=== PATIENT | female | born 1970 | race Caucasian/White ===

== ENCOUNTER 2017-02-05 06:46 | Day surgery (SDC) | payer BC, OTHER ==
[2017-02-03 11:07] VITALS: BMI 27.4
[2017-02-05] MEDS ORDERED: MIDAZOLAM HCL 2 MG/2 ML SINGLE DOSE VIAL ONE (07:33)
[2017-02-05] MEDS ORDERED: PHENYLEPHRINE HCL 10 MG/1 ML SINGLE DOSE VIAL ONE (07:33)
[2017-02-05] MEDS ORDERED: PROPOFOL 20 ML ONE ×7 (07:33→09:00)
[2017-02-05] MEDS ORDERED: SUCCINYLCHOLINE CHLORIDE 200 MG/10 ML VIAL ONE (07:33)
[2017-02-05] MEDS ORDERED: ePHEDrine SULFATE 50 MG/1 ML AMPULE ONE (07:33)
[2017-02-05] MEDS ORDERED: ROCURONIUM BROMIDE 50 MG/5 ML VIAL ONE (07:36)
[2017-02-05] MEDS ORDERED: GENTAMICIN SO4 80 MG/2 ML VIAL ONE (08:23)
[2017-02-05] MEDS ORDERED: ceFAZolin SODIUM 1 GM VIAL IVPB ONE (08:34)
[2017-02-05] MEDS ORDERED: GENTAMICIN SO4 80 MG/2 ML VIAL IVPB ONE (08:37)
[2017-02-05] MEDS ORDERED: DEXAMETHASONE SOD PHOSPHATE 4 MG/1 ML VIAL ONE (08:54)
[2017-02-05] MEDS ORDERED: ONDANSETRON 4 MG/2 ML VIAL ONE (08:54)
[2017-02-05] MEDS ORDERED: BACITRACIN 30 GM TUBE TOPICAL OINTMENT ONE (09:13)
[2017-02-05] MEDS ORDERED: BACITRACIN 30 GM TUBE TOPICAL OINTMENT TP ONE (09:18)
[2017-02-05] MEDS ORDERED: oxyCODONE HCL 5 MG TABLET PO PRN (09:24)
--- NOTE | 2017-02-05 09:24 | OP ---
Operative Note - Note: Operative Date: 02/05/17 Pre-Operative Diagnosis: stress urinary incontinence Operation: cysto/suburethral sling placement (altiss) Findings: ADRYAN Post-Operative Diagnosis: Same as Pre-op Surgeon: Jorden Arriaga Anesthesia: Spinal Estimated Blood Loss (mls): 25 Operative Report Dictated: Yes
[2017-02-05] MEDS ORDERED: ELECTROLYTE-148 SOLN 1,000 ML IV SCH (09:30)
[2017-02-05] MEDS ORDERED: ONDANSETRON 4 MG/2 ML VIAL IVPUSH PRN (09:38)
[2017-02-05] MEDS ORDERED: LACTATED RINGERS SOLUTION 1,000 ML IV SCH (09:45)
--- NOTE | 2017-02-05 10:50 | OP ---
DATE OF OPERATION: 02/05/2017 PREOPERATIVE DIAGNOSIS: Stress urinary incontinence. POSTOPERATIVE DIAGNOSIS: Stress urinary incontinence. PROCEDURE: Cystoscopy, sub urethral sling placement, Altis by Coloplast. SURGEON: Estevan Dean M.D. INDICATIONS: Patient is a 47-year-old female with stress urinary incontinence who, after reviewing the treatment options, elected to undergo sling placement. Understood the risks of bleeding, infection, persistent stress urinary incontinence urge incontinence, potential risk for sling erosion, potential need for additional procedures. FDA warning regarding mesh was also discussed. After informed consent was obtained, patient elected to undergo the procedure. PROCEDURE: Patient was taken to the OR and placed supine on the operating room table. Spinal anesthetic was given. She was prepped and draped position. Vasopressin was injected into the vagina and a Stanton catheter was placed, as well as a weighted vaginal speculum. At this point, a midline incision was created in the mid urethra. The vaginal epithelium was from the underlying sub urethral tissue and the dissection was carried out laterally until the obturator membrane could be palpated. This was done bilaterally. Any bleeding that was encountered was cauterized. Using finger palpation, the obturator membrane could be felt bilaterally. At this point, attention first turned to the patient's right side. The right-sided trocar was placed onto the anchor of the sling. The trocar was placed at the appropriate angle on the patient and advanced beyond bone right to where the obtruator membrane could be palpated. The membrane was pierced with the trocar and a slight twist allowed the anchor to be disengaged from the trocar and the trocar removed. A slight tug on the sling revealed good anchor situation beyond the membrane. In a similar fashion on the patient's left side, the trocar was attached to the anchor on the sling. Trocar was placed at the appropriate angle and then advanced beyond bone to where the obturator membrane could be felt and then the obturator membrane was pierced with the trocar with a slight turn and thereby disengaging the anchor onto the obturator membrane and then the trocar removed. At this point, the sling was snug up against the urethra, but there was no tension. A right angle clamp could be easily placed between the sling and the mid urethra. The bladder was filled to 250 mL. The patient was asked to cough. There was no incontinence noted. The excess suture on the sling was then excised and attention was turned to wound closure. The wound was closed with a running 2-0 Vicryl suture in a locking fashion. The Stanton was removed and re-cystoscopy was performed to confirm no evidence of any bladder or urethral injury and none was noted. Bilateral urethral orifices were seen in their normal anatomic position and with good efflux. Cystoscope removed. Stanton was then replaced and the vaginal packing was placed as well. The patient was then awoken from anesthesia and transferred to the recovery room in stable condition. COMPLICATIONS: There were no complications. ESTIMATED BLOOD LOSS: Approximately 25 mL. ESTEVAN DEAN M.D. [id number]
[2017-02-05 11:12] VITALS: TEMP 98
[2017-02-05] MEDS ORDERED: ACETAMINOPHEN 325 MG TABLET (FP) ONE (12:52)
[2017-02-05] MEDS ORDERED: ACETAMINOPHEN 325 MG TABLET (FP) PO ONE (12:57)
[2017-02-05 15:42] VITALS: BP 123/60; PULSE 60
== END 2017-02-05 15:42 | disposition home or self-care (01) ==
LOC: JASU-SURG 06:46
PROVIDERS: ATTEND Urology
PROC: 0TSD0ZZ Reposition Urethra, Open Approach (ICD-10-PCS; principal; 2017-02-05 08:00)
DX: N39.3 Stress incontinence (female) (male) (principal)
CPT/HCPCS: 84703; 94760

== ENCOUNTER 2019-06-30 10:17 | Day surgery (SDC) | payer BC ==
[2019-06-28 14:19] VITALS: BMI 27.8
[2019-06-30] MEDS ORDERED: ONDANSETRON 4 MG/2 ML VIAL IVPUSH PRN (12:09)
[2019-06-30] MEDS ORDERED: MIDAZOLAM HCL 2 MG/2 ML SINGLE DOSE VIAL ONE (12:12)
[2019-06-30] MEDS ORDERED: PROPOFOL 20 ML ONE ×2 (12:12→12:18)
[2019-06-30] MEDS ORDERED: LACTATED RINGERS SOLUTION 1,000 ML IV SCH (12:15)
[2019-06-30] MEDS ORDERED: ceFAZolin SODIUM 1 GM VIAL IVPB ONE (12:20)
[2019-06-30] MEDS ORDERED: GENTAMICIN SO4 80 MG/2 ML VIAL IVPB ONE (12:21)
[2019-06-30] MEDS ORDERED: BACITRACIN 15 GM TUBE TOPICAL OINTMENT ONE (12:46)
[2019-06-30] MEDS ORDERED: GENTAMICIN SO4 80 MG/2 ML VIAL ONE (12:46)
[2019-06-30] MEDS ORDERED: BACITRACIN 15 GM TUBE TOPICAL OINTMENT TP ONE (12:48)
[2019-06-30] MEDS ORDERED: oxyCODONE HCL 5 MG TABLET PO PRN (13:04)
--- NOTE | 2019-06-30 13:05 | OP ---
Operative Note - Note: Operative Date: 06/30/19 Pre-Operative Diagnosis: eroded suburethral sling Operation: sling removal Post-Operative Diagnosis: Same as Pre-op Anesthesia: General Estimated Blood Loss (mls): 5 Operative Report Dictated: Yes
[2019-06-30] MEDS ORDERED: ELECTROLYTE-148 SOLN 1,000 ML IV SCH (13:15)
--- NOTE | 2019-06-30 14:46 | OP ---
DATE OF OPERATION: 06/30/2019 PREOPERATIVE DIAGNOSIS: Eroded suburethral sling. POSTOPERATIVE DIAGNOSIS: Eroded suburethral sling. PROCEDURE: Suburethral sling removal. SURGEON: Estevan Dean MD INDICATION: Patient is a 49-year-old female who is status post sling placement several years ago for stress urinary incontinence, now has noticed increased urinary frequency and urge incontinence, and on exam, noted to have sling erosion. She was taken to the OR for removal of the eroded sling. Risks, benefits, and alternatives discussed. After informed consent was obtained, patient was taken to the OR and placed supine on the operating table. After cardiac monitoring was established, general anesthesia was then administered. She was prepped and draped in the dorsal lithotomy position. A mid-urethral incision was created in the vaginal epithelium right where the eroded sling was identified. The eroded sling was then dissected laterally until its attachments to the obturator fossa were identified. After dissection, each arm of the sling was then excised from its attachments to the obturator fascia, and then, the sling was removed in its entirety and sent to pathology for analysis. All bleeding sites were cauterized. The vaginal epithelium was then reapproximated with 2-0 running Vicryl stitch, and vaginal packing was then placed. Of note, a Stanton catheter was placed prior to the incision and was kept after the procedure. Patient was then awoken from anesthesia and transferred to recovery room in stable condition. There were no complications. Estimated blood loss was minimal. ESTEVAN DEAN M.D. [id number]
[2019-06-30 17:22] VITALS: TEMP 98.2
[2019-06-30 17:41] VITALS: BP 115/75; PULSE 94
--- NOTE | 2019-07-04 09:09 | PATH ---
Surgical Pathology Report Patient Name: MARK GOLD [facility]. Rec. #: [id number] /Age/Gender: 1970 (Age: 49) / F Account: [id number] Location: U SURGICAL Taken: 06/30/2019 Received: 06/30/2019 Reported: 07/04/2019 Physicians: Jorden Arriaga M.D. Specimen(s) Received REMOVED SUBURETHRAL SLING Clinical History Eroded suburethral sling Final Diagnosis SUBURETHRAL SLING, REMOVAL: GENITOURINARY DEVICE CONSISTENT WITH SUBURETHRAL SLING. MACROSCOPIC DIAGNOSIS. Electronically Signed Victorina Henderson M.D. Gross Description Received in formalin labeled "removed suburethral sling," is a 4.0 x 0.8 x 0.1 cm munoz brown portion of meshlike material, consistent with a sling. No soft tissue is present. No sections are submitted, gross only. 07/01/2019 [facility]07/01/2019
== END 2019-06-30 17:15 | disposition home or self-care (01) ==
LOC: JASU-SURG 10:17
PROVIDERS: ATTEND Urology
PROC: 0TP Urinary System, Removal (ICD-10-PCS; principal; 2019-06-30 12:00)
DX: T83.712A Erosion of implanted urethral mesh to surrounding organ or tissue, initial encounter (principal); N39.41 Urge incontinence; R35.0 Frequency of micturition
CPT/HCPCS: 84703; 88300-TC; 94760